=== PATIENT | female | born 1990 | race Caucasian/White ===

== ENCOUNTER 2017-03-13 14:25 | Emergency (ER) | payer OTHER ==
[~2017-03-13] VITALS: Ht 154.9 cm; Wt 90.4 kg
[2017-03-13 14:27] VITALS: PULSE 98; RESP 15; O2SAT 99
[2017-03-13] MEDS ORDERED: TdaP Vaccine 0.5 mL Inj IM ONE (15:25)
--- NOTE | 2017-03-13 16:08 | ED.REPORT ---
HPI-General Illness Date of Service March 13, 2017 ED Provider: Arnaud Vaughan PA-C Susana is an otherwise healthy 26-year-old female presented with a chief complaint of a laceration. Patient reports an accidental laceration to her left forearm immediately prior to presentation caused by a paring knife. She rinsed it with plain water and proceeded to emergency department. Patient denies suicidal ideation, intentional harm herself. She reports that she is overdue for tetanus shot. Denies diabetes, HIV, immunosuppression, bleeding/ clotting disorders. Nursing Notes Stated Complaint: CUT ON FOREARM Chief Complaint: Laceration Nursing Notes Reviewed: Yes Allergies: Coded Allergies: No Known Allergies (Unverified , 03/13/17) General Time Seen by MD: 15:09 Chief Complaint Laceration Past Medical History Past Medical History Denies Review of Systems Negative unless stated otherwise in history of present illness Physical Exam General: Well appearing, well developed, well nourished, no acute distress. Left arm: Clean 5 cm longitudinal laceration through the dermis on the volar aspect of the left forearm. Situation, sensation and motion intact distal to the injury with brisk capillary refill and radial pulse 2+. Head: Atraumatic, normocephalic. Eyes: No scleral icterus or injection. No discharge. Vision grossly intact. ENT: Voice clear, hearing grossly intact. Respiratory: Regular rate and rhythm. Breath sounds present, clear to auscultation and equal bilaterally. No respiratory distress. No increased work of breathing, speaks in complete sentences. Cardiovascular: Regular rate and rhythm, without murmur, gallop or rub. No pedal edema. Gastrointestinal: Abdomen flat and non-tender without guarding or rebound. Bowel sounds normoactive. Skin: Warm and dry. Neurological: Grossly nonfocal. Psychological: Alert and oriented. Speech appropriate, linear and logical. Behavior appropriate. Vital Signs Vital Signs Date Time Temp Pulse Resp B/P Pulse Ox O2 Delivery O2 Flow Rate FiO2 03/13/17 14:27 36.2 98 15 99 Room Air Initial VS: Vital signs normal Procedures Laceration Management Time: 15:50 Procedure Performed by: Allied health pract Wound Length: 5 cm Local Anesthesia: Lidocaine w epi 1%, 4cc, 27g needle Wound Preparation: Other (soap and tap water) Debridement: None Irrigation: Copious (irrigated with tap water approximately 5 minutes) Foreign Body Explore / Removal: Explored for foreign body Repair Skin: Nylon (5-0) Suture Technique: Running (19 sutures) Post-Procedure / Complications: Antibiotic oint applied, Dressing applied, No complications, Condition improved, Tolerated procedure well, Patient stable Re-Eval/Medical Decision Med Decision/Clinical Course Otherwise healthy 26-year-old who presents with an accidental laceration to her left forearm. Minimal bleeding. Denies suicidal ideation or thoughts of harming herself. No history to suggest difficulty healing. She states that she is not up-to-date on her tetanus booster and a tetanus booster is provided. Wound is closed with 19 sutures, dressed with antibiotic ointment and gauze. Wound care instructions given as well as primary care follow-up instructions, emergency return precautions. Patient verbalizes understanding of and content to plan. Discharge & Departure Primary Impression: Laceration Disposition: Home Discharge Condition All VS Reviewed: Yes Condition: Stable Patient Instructions: Suture Care (ED) Additional Instructions: Evaluation in the emergency department for a laceration. This appears to be a clean wound, with no damage to muscle or tendons. I see no indication for antibiotics at this time. We have provided with a tetanus booster We have cleaned, sutured and dressed the wound with antibiotic ointment and gauze. Please leave this dressing on and dry for the next 24 hours. After that you can remove the dressing, clean with soap and water and then reapply antibiotic ointment and gauze or Band-Aid. Please do not submerge the wound as in washing dishes, swimming or soaking in a tub until you have the sutures removed. The pain is best treated with 400 mg of ibuprofen (Advil, Motrin) every 6 hours , or 1000 mg of acetaminophen (Tylenol) every 6 hours. These drugs can be taken at the same time for more severe pain. Be vigilant for signs of infection. While a small amount of redness, tenderness and clear or pink drainage is normal, any increasing pain, redness, swelling or the appearance of pus suggests infection. More severe infection as suggested by symptoms such as fever, chills, feeling ill, racing heart. Please return to emergency Department if you notice signs of infection. Follow-up with your primary care provider or return to the emergency department in 7 days for suture removal. Referrals: Alan Torres MD EDSupervising Provider for APC: Milton Guevara DO copies to: Alan Torres MD, Seth PA-C March 13, 2017 16:08
[2017-03-13 16:23] VITALS: BP 134/86; PULSE 74; RESP 14; O2SAT 97
== END 2017-03-13 16:09 | disposition home or self-care (01) ==
LOC: SED 14:25
DX: S51.812A Laceration without foreign body of left forearm, initial encounter (principal); W26.0XXA Contact with knife, initial encounter; Y92.9 Unspecified place or not applicable; Y93.G1 Activity, food preparation and clean up; Y99.8 Other external cause status; Z23 Encounter for immunization